=== PATIENT | female | born 1990 | race Caucasian/White ===

== ENCOUNTER 2023-12-15 19:45 | Emergency (ER) | payer MEDICAID, OTHER ==
[2023-12-15 20:38] LABS: BASOPHILS # (AUTO) 0.1 10^3/uL (0.0-0.1); BASOPHILS % (AUTO) 0.8 %; EOSINOPHILS # (AUTO) 0.3 10^3/uL (0.0-0.7); EOSINOPHILS % (AUTO) 2.9 %; HCT - HEMATOCRIT 40.4 % (37.0-47.0); HGB - HEMOGLOBIN 13.7 g/dL (12.0-16.0); LYMPHOCYTES # (AUTO) 2.4 10^3/uL (1.5-3.5); LYMPHOCYTES % (AUTO) 24.3 %; MEAN CORPUSCULAR HEMOGLOBIN 29.5 pg (27.0-31.0); MEAN CORPUSCULAR HGB CONC 33.9 g/dL (32.0-36.0); MEAN CORPUSCULAR VOLUME 86.9 fL (81.0-99.0); MEAN PLATELET VOLUME 9.4 fL (7.9-10.8); MONOCYTES # (AUTO) 0.7 10^3/uL (0.0-1.0); MONOCYTES % (AUTO) 7.3 %; NEUTROPHILS # (AUTO) 6.3 10^3/uL (1.5-6.6); NEUTROPHILS % (AUTO) 64.4 %; PLT - PLATELET COUNT 392 10^3/uL (130-450); RED BLOOD COUNT 4.65 10^6/uL (4.20-5.40); RED CELL DISTRIBUTION WIDTH 12.5 % (12.0-15.0); WHITE BLOOD COUNT 9.8 x10^3/uL (4.8-10.8)
[2023-12-15 20:54] LABS: ALBUMIN 4.6 g/dL (3.2-5.5); BILIRUBIN,TOTAL 0.3 mg/dL (0.2-1.0); CALCIUM 9.5 mg/dL (8.5-10.3); CREATININE 0.7 mg/dL (0.6-1.3); POTASSIUM 3.4 mmol/L (3.5-4.5); TOTAL PROTEIN 6.9 g/dL (6.4-8.9)
[2023-12-15 21:14] LABS: BILIRUBIN,URINE NEGATIVE (NEGATIVE); GLUCOSE, URINE (UA) NEGATIVE (NEGATIVE); KETONES,URINE (UA) NEGATIVE (NEGATIVE); LEUKOCYTE ESTERASE, URINE NEGATIVE (NEGATIVE); NITRITE,URINE NEGATIVE (NEGATIVE); OCCULT BLOOD,URINE LARGE (NEGATIVE); PH,URINE 5.5 PH (5.0-7.5); PROTEIN,URINE NEGATIVE (NEGATIVE); UROBILINOGEN,URINE 0.2 (NORMAL) E.U./dL (NORMAL)
--- NOTE | 2023-12-15 21:15 | ED Physician Documentation ---
History of Present Illness - Stated complaint Stated Complaint: NAUSEA/HIGH HR - Chief complaint Chief Complaint: Ext Problem - Additonal information Additional information: Patient is a 33-year-old female presenting to the emergency department from work. Patient notes she was working all day and developed lightheadedness tingling fast heart rate after shortly eating. Patient went to the [employer] and they noted symptoms were not resolving despite using an ice pack and brought patient to the emergency department. Patient on arrival still feels symptomatic with feelings of lightheadedness and tingling in fingers and toes. Patient also feels nauseous but no episodes of vomiting. She notes she was feeling fine this morning she did not eat lunch or much of a breakfast that she did eat dinner but her symptoms started shortly after eating dinner. She denies any fevers she denies any syncopal episodes. She notes she was working outside all day prior to this happening. PD PAST MEDICAL HISTORY - Past Medical History Past Medical History: No Cardiovascular: None Respiratory: None Neuro: None Endocrine/Autoimmune: None GI: None FINANCE ADVISOR: None : None HEENT: None Psych: None Musculoskeletal: None Derm: None Other Past Medical History: PRE DM X 1 yr ago... - Past Surgical History Past Surgical History: Yes HEENT: Tonsil/Adenoidectomy - Present Medications Home Medications: Ambulatory Orders Medication Instructions Recorded Confirmed No Known Home Medications 12/15/23 12/15/23 - Allergies Allergies/Adverse Reactions: Allergies Allergy/AdvReac Type Severity Reaction Status Date / Time No Known Drug Allergies Allergy Verified 12/15/23 20:09 - Social History Does the pt smoke?: No Smoking Status: Never smoker Does the pt drink ETOH?: Yes Does the pt have substance abuse?: No - Immunizations Immunizations are current?: Yes - POLST Patient has POLST: No PD ED PE NORMAL - Vitals Vital signs reviewed: Yes - General General: Alert and oriented X 3 - HEENT HEENT: Atraumatic - Neck Neck: Supple, no meningeal sign - Cardiac Cardiac: RRR, No murmur, No gallop, No rub - Respiratory Respiratory: No respiratory distress, Clear bilaterally - Abdomen Abdomen: Normal bowel sounds, Non tender, Non distended - Derm Derm: Normal color, No rash - Extremities Extremities: No deformity - Neuro Neuro: Alert and oriented X 3 - Psych Psych: Normal mood, Normal affect Results - Vitals Vitals: Vital Signs - 24 hr 12/15/23 12/15/23 19:59 21:02 Temperature 36.5 C Heart Rate 67 70 Respiratory 16 18 Rate Blood Pressure 128/76 130/78 O2 Saturation 100 98 Oxygen O2 Source Room air - EKG (time done) 1008 EKG releavant findings:: EKG personally interpreted by author of this note. Relevant findings are: Rate: Rate (enter#), Chris, Tachy, Other Rhythm: NSR [place]: Normal Intervals: Normal [place] QRS: Normal Ischemia: Normal ST segments Compare to prior EKG: Old EKG unavailable Computer interpretation: Agree with computer - Labs Labs: Laboratory Tests 12/15/23 12/15/23 12/15/23 20:11 20:12 20:33 WBC 9.8 RBC 4.65 Hgb 13.7 Hct 40.4 MCV 86.9 MCH 29.5 MCHC 33.9 RDW 12.5 Plt Count 392 MPV 9.4 Neut # (Auto) 6.3 Lymph # (Auto) 2.4 [place] # (Auto) 0.7 Eos # (Auto) 0.3 Baso # (Auto) 0.1 Absolute Nucleated RBC 0.00 Nucleated RBC % 0.0 Sodium Potassium Chloride Carbon Dioxide Anion Gap BUN Creatinine Estimated GFR (MDRD) Glucose Calcium Total Bilirubin AST ALT Alkaline Phosphatase Total Protein Albumin Globulin Albumin/Globulin Ratio Lipase Urine Color YELLOW Urine Clarity CLEAR Urine pH 5.5 Ur Specific [place] >=1.030 H Urine Protein NEGATIVE Urine Glucose (UA) NEGATIVE Urine Ketones NEGATIVE Urine Occult Blood LARGE H Urine Nitrite NEGATIVE Urine Bilirubin NEGATIVE Urine Urobilinogen 0.2 (NORMAL) Ur Leukocyte Esterase NEGATIVE Urine RBC 6-10 H Urine WBC 0-3 Ur Squamous Epith Cells MANY Squamous H Urine Bacteria Rare Ur Microscopic Review INDICATED Urine Culture Comments NOT INDICATED Urine HCG, Qual NEGATIVE 12/15/23 20:33 WBC RBC Hgb Hct MCV MCH MCHC RDW Plt Count MPV Neut # (Auto) Lymph # (Auto) [place] # (Auto) Eos # (Auto) Baso # (Auto) Absolute Nucleated RBC Nucleated RBC % Sodium 136 Potassium 3.4 L Chloride 101 Carbon Dioxide 27 Anion Gap 8.0 BUN 16 Creatinine 0.7 Estimated GFR (MDRD) 98 Glucose 98 Calcium 9.5 Total Bilirubin 0.3 AST 13 ALT 15 Alkaline Phosphatase 48 Total Protein 6.9 Albumin 4.6 Globulin 2.3 Albumin/Globulin Ratio 2.0 Lipase 30 Urine Color Urine Clarity Urine pH Ur Specific [place] Urine Protein Urine Glucose (UA) Urine Ketones Urine Occult Blood Urine Nitrite Urine Bilirubin Urine Urobilinogen Ur Leukocyte Esterase Urine RBC Urine WBC Ur Squamous Epith Cells Urine Bacteria Ur Microscopic Review Urine Culture Comments Urine HCG, Qual PD Medical Decision Making - ED course Complexity details: reviewed old records, reviewed results ED course: Patient is a healthy 33-year-old female presenting to the emergency department with feelings of lightheadedness tingling in upper and lower extremities and feelings of nausea. Patient notes symptoms occurred after she was working outside all day. Patient's symptoms are persistent here in the emergency department she was able to eat dinner prior to all of these episodes happening no episodes of vomiting or syncope. Vitals on arrival are reassuring patient is nontachycardic afebrile normotensive blood pressure. Physical exam shows no focal neurodeficits normal cardiac and lung sounds. Pulses intact in upper and lower extremities on examination. Labs were obtained while patient was in triage showing no significant leukocytosis, no signs of anemia, CMP does show some mild hypokalemia at 3.4. Urine did show signs of blood in urine but patient is on her menstrual period at this time which could explain these findings. Patient's test is negative and EKG shows normal sinus rhythm normal TX and QTc. No signs of arrhythmias or ST elevation. Given reassuring findings patient will be discharged home she feels significantly better after Zofran and drinking fluids and juice here in the emergency department. Instructed patient symptoms most likely secondary to presyncopal symptoms she will drink lots of fluids tomorrow and eat a good meal for all 3 meals. She notes her symptoms were most likely secondary to decreased eating and drinking today. Patient will rest tomorrow. Strict return precautions given. Departure - Departure Disposition: 01 Home, Self Care Clinical Impression: Pre-syncope Condition: Good Comments: Your workup here was reassuring in the emergency department your EKG and labs showed reassuring findings symptoms most likely secondary to a presyncopal event. We discussed these findings drink lots of fluids tomorrow and eat a good meal for breakfast lunch and dinner. Sit down if you start to feel lightheaded or dizzy or tingling in your extremities. Return with any chest pain shortness of breath nausea vomiting fevers or syncopal episodes. Forms: PCP List
[2023-12-15 21:27] LABS: CLARITY,URINE CLEAR (CLEAR)
[2023-12-15 21:30] LABS: BACTERIA,URINE Rare /HPF (None Seen); SQUAMOUS EPITHELIAL CELL,UR MANY Squamous (<= Few); WBC,URINE 0-3 /HPF (0-5)
[2023-12-15 21:55] LABS: HCG UR QUAL NEGATIVE
[2023-12-15] MEDS: POTASSIUM CHLORIDE 20 MEQ TABLET PO STA (22:01)
[2023-12-15] MEDS: ONDANSETRON ODT 4 MG TABLET TL STA (22:01)
[2023-12-15 22:39] VITALS: BP 124/77; O2SAT 99
== END 2023-12-15 22:30 | disposition home or self-care (01) ==
LOC: ED 19:45
DX: R55 Syncope and collapse (principal)
CPT/HCPCS: 36415; 80053; 81001; 81025; 83690; 85025; 93005; 99283; 99284; A9270; Q0162; 81003; 87086